=== PATIENT | female | born 1975 | race African-American/Black ===

== ENCOUNTER 2018-07-29 00:16 | Inpatient (IN) | payer MEDICAID ==
[~2018-07-29] VITALS: Ht 160 cm; Wt 55.3 kg
[2018-07-29] VITALS (7 sets, daily range): BP systolic 98–110; BP diastolic 48–56
[~2018-07-29 00:16] MED LIST: CEPHALEXIN500 MG ORAL; NKM
--- NOTE | 2018-07-29 00:44 | Emergency Room Report ---
History of Present Illness General Chief Complaint: Back Pain-No Injury Source: Patient, Medical Record Present Illness HPI This a 42-year-old female who was diagnosed recently with pyelonephritis. CT scan is negative for kidney stones. She was started on Keflex. Urine culture grew out Escherichia coli and sensitive to medicines she is on. She already had follow-up with her doctor and had a CT with IV contrast done. Still show inflammation around the kidney. Patient was doing well until tonight when she woke up with increasing pain. No nausea no vomiting. No fever chills. Denies any other complaint. Pain is 8 out of 10. Localized the right side. Allergies: Coded Allergies: No Known Allergies (Unverified , 07/23/18) Patient History Past Medical History: see triage record, old chart reviewed Past Surgical History: none Pertinent Family History: none Social History: Denies: smoking Last Menstrual Period: jul 21 Now: No Immunizations: other Reviewed Nursing Documentation: PMH: Agreed; PSxH: Agreed Nursing Documentation-PMH Hx Cardiac Problems: No Hx Hypertension: No Hx Pacemaker: No Hx Asthma: No Hx COPD: No Hx Diabetes: No Hx Cancer: No Hx Gastrointestinal Problems: No Hx Dialysis: No History Of Psychiatric Problem: No Hx Neurological Problems: No Hx Cerebrovascular Accident: No Hx Seizures: No Review of Systems Eye: Denies: eye pain, blurred vision ENT: Denies: ear pain, nose congestion, throat swelling Respiratory: Denies: cough, shortness of breath Cardiovascular: Denies: chest pain, palpitations Gastrointestinal: Denies: abdominal pain, diarrhea, nausea, vomiting Genitourinary: Reports: hematuria Musculoskeletal: Reports: back pain; Denies: joint pain Skin: Denies: rash Neurological: Denies: headache, numbness Endocrine: Denies: increased thirst, increased urine Hematologic/Lymphatic: Denies: easy bruising All Other Systems: negative except mentioned in HPI Physical Exam Vital Signs Date Time Temp Pulse Resp B/P (MAP) Pulse Ox O2 Delivery O2 Flow Rate FiO2 07/29/18 00:17 97.9 80 19 98/48 99 Room Air vitals unremarkable Sp02 EP Interpretation: reviewed, normal General Appearance: well appearing, no apparent distress, alert Head: normocephalic, atraumatic Eyes: bilateral eye PERRL, bilateral eye EOMI ENT: hearing grossly normal, normal pharynx Neck: full range of motion, supple, no meningismus Respiratory: chest non-tender, lungs clear, normal breath sounds Cardiovascular #1: regular rate, rhythm, no murmur Gastrointestinal: normal bowel sounds, non tender, no mass, no organomegaly, no bruit, non-distended Genitourinary: CVA tenderness (R) Musculoskeletal: back normal, gait/station normal, normal range of motion Psychiatric: mood/affect normal Skin: warm/dry Medical Decision Making Diagnostic Impression: Primary Impression: Pyelonephritis ER Course She presents with pyelonephritis. She had 2 CT scans done already. 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 No kidney stone. She said the CT scan with IV contrast also showed the same thing. This was done as an outpatient. She no longer have fever and white count is better. She still has evidence of urinary tract infection with moderate amount of bacteria. She's been on 4 days of Keflex. This should be the correct antibiotics since culture grew out Escherichia coli is pansensitive. Because of continual symptoms of pyelonephritis, will admit for IV antibiotics. I contacted Dr. Chacon for admission. Lab Results Impression labs unremarkable Last Vital Signs Date Time Temp Pulse Resp B/P (MAP) Pulse Ox O2 Delivery O2 Flow Rate FiO2 07/29/18 00:28 97.9 19 98/48 99 Room Air 07/29/18 00:17 80 Status: improved Disposition: ADMITTED INPATIENT Condition: Serious Dc Barron MD Jul 29, 2018 00:43
[2018-07-29] MEDS ORDERED: cefTRIAXone 1 GM in NS 55 ML IVPB ONE (00:45)
[2018-07-29] MEDS ORDERED: Morphine Sulfate 4mg/ml Inj (IV/IM USE ONLY) IVP ONE (00:45)
[2018-07-29 01:12] LABS: BASOPHILS % (AUTO) 0.8 % (0.0-2.0); EOSINOPHILS % (AUTO) 0.8 % (0.0-3.0); HEMATOCRIT 26.6 % (37.0-47.0); HEMOGLOBIN 9.7 G/DL (12.0-16.0); LYMPHOCYTES % (AUTO) 17.5 % (20.0-45.0); MEAN CORPUSCULAR VOLUME 90 FL (80-99); MONOCYTES % (AUTO) 4.6 % (1.0-10.0); NEUTROPHILS % (AUTO) 76.3 % (45.0-75.0); PLATELET COUNT 265 K/UL (150-450); RED BLOOD COUNT 2.97 M/UL (4.20-5.40); RED CELL DISTRIBUTION WIDTH 11.9 % (11.6-14.8); WHITE BLOOD COUNT 11.6 K/UL (4.8-10.8)
[2018-07-29 01:16] LABS: BILIRUBIN, URINE NEGATIVE (NEGATIVE); GLUCOSE, URINE (UA) NEGATIVE (NEGATIVE); KETONES,URINE NEGATIVE (NEGATIVE); LEUKOCYTE ESTERASE ,URINE 2+ (NEGATIVE); NITRITE,URINE NEGATIVE (NEGATIVE); PH,URINE 8 (4.5-8.0); PROTEIN,URINE 3+ (NEGATIVE); UROBILINOGEN,URINE 1 MG/DL (0.0-1.0)
[2018-07-29 01:21] LABS: ANION GAP 3 mmol/L (5-15); BLOOD UREA NITROGEN 12 mg/dL (7-18); CALCIUM 8.7 MG/DL (8.5-10.1); CARBON DIOXIDE 30 MMOL/L (21-32); CHLORIDE 105 MMOL/L (98-107); POTASSIUM 3.6 MMOL/L (3.5-5.1); SODIUM 138 MMOL/L (136-145)
[2018-07-29 01:27] LABS: CREATININE 0.7 MG/DL (0.55-1.30)
[2018-07-29 01:28] LABS: COLOR,URINE AMBER
[2018-07-29 01:29] LABS: APPEARANCE,URINE SLIGHTLY CLOUDY
[2018-07-29] MEDS ORDERED: Morphine Sulfate 2mg/ml Inj IVP PRN (03:30)
[2018-07-29] MEDS: D5 1/2NS 1,000 ML IV SCH ×2 (03:37→20:57)
[2018-07-29] MEDS ORDERED: Albuterol/Ipratropium 3ml neb HHN PRN (05:45)
[2018-07-29] MEDS ORDERED: Miralax 17gm pkt ORAL PRN (05:45)
[2018-07-29] MEDS ORDERED: Potassium Chloride 40 MEQ in Sodium Chloride 500ML 550 ML IVPB ONE (05:45)
[2018-07-29 07:31] LABS: BASOPHILS % (AUTO) 1.1 % (0.0-2.0); EOSINOPHILS % (AUTO) 0.6 % (0.0-3.0); HEMATOCRIT 30.9 % (37.0-47.0); HEMOGLOBIN 11.2 G/DL (12.0-16.0); LYMPHOCYTES % (AUTO) 20.5 % (20.0-45.0); MEAN CORPUSCULAR VOLUME 91 FL (80-99); MONOCYTES % (AUTO) 4.7 % (1.0-10.0); NEUTROPHILS % (AUTO) 73.1 % (45.0-75.0); PLATELET COUNT 293 K/UL (150-450); RED BLOOD COUNT 3.41 M/UL (4.20-5.40); RED CELL DISTRIBUTION WIDTH 11.8 % (11.6-14.8); WHITE BLOOD COUNT 10.5 K/UL (4.8-10.8)
[2018-07-29 07:53] LABS: ANION GAP 5 mmol/L (5-15); BLOOD UREA NITROGEN 10 mg/dL (7-18); CALCIUM 8.3 MG/DL (8.5-10.1); CARBON DIOXIDE 27 MMOL/L (21-32); CHLORIDE 108 MMOL/L (98-107); CREATININE 0.6 MG/DL (0.55-1.30); POTASSIUM 4.1 MMOL/L (3.5-5.1); SODIUM 140 MMOL/L (136-145)
[2018-07-29] MEDS ORDERED: Vancomycin 1 GM in D5W 275 ML IVPB SCH (08:00)
[2018-07-29] MEDS: Morphine Sulfate 2mg/ml Inj IVP PRN ×3 (08:29→19:48)
[2018-07-29] MEDS ORDERED: Heparin 5000 units/ml inj SUBQ SCH (09:00)
--- NOTE | 2018-07-29 11:57 | Consultation ---
Consult Note Consult Note # [id number] Ranulfo Alba MD Jul 29, 2018 11:57
[2018-07-29] MEDS: Cefepime HCl 2 GM in D5W 110 ML IV SCH ×2 (12:32→20:56)
[2018-07-29] MEDS ORDERED: Sodium Phosphate 30 MM in NS 275 ML IV ONE (12:45)
[2018-07-29] MEDS ORDERED: Vancomycin 500mg/D5W 110ml IVPB SCH ×2 (16:00)
--- NOTE | 2018-07-29 21:45 | History and Physical Report ---
DATE OF ADMISSION: 07/29/2018 CONSULTANTS: 1. Kevin Mansfield M.D. 2. Ranulfo Alba M.D. CHIEF COMPLAINT: Hematuria for three weeks and pyelonephritis. BRIEF HISTORY: This is a 42-year-old female, who had recurrent hematuria intermittently for three weeks and slight flank pain, came to [facility], diagnosed with pyelonephritis, and admitted to medical floor for further treatment. Currently, slight back pain. No complaint. REVIEW OF SYSTEMS: No chest pain. No shortness of breath. No nausea, vomiting, or diarrhea. PAST MEDICAL HISTORY: Nothing. PAST SURGICAL HISTORY: Ovarian cyst and . MEDICATIONS: Include vancomycin, magnesium, cefepime, heparin, potassium, albuterol, morphine, and temazepam. ALLERGIES: Denies. SOCIAL HISTORY: No smoking. No alcohol. No intravenous drug abuse. FAMILY HISTORY: Noncontributory. PHYSICAL EXAMINATION: GENERAL: Calm in bed, oriented x3, and in no acute distress. VITAL SIGNS: Temperature is 97 degrees, pulse 72, respirations 18, and blood pressure 106/51. CARDIOVASCULAR: No murmurs. LUNGS: Distant and clear. ABDOMEN: Bowel sounds positive. Nontender. Nondistended. EXTREMITIES: Show no cyanosis, clubbing, or edema. NEUROLOGIC: Cranial nerves II through XII are grossly intact. Deep tendon reflexes 2+. Muscle strength 5/5. LABORATORY DATA: Laboratories, at this time, show hemoglobin 11.2, otherwise CBC is normal. BMP shows chloride 108, otherwise normal. Urinalysis, 3+ protein and 2+ leukocyte esterase. ASSESSMENT: 1. Pyelonephritis. 2. Anemia. PLAN: 1. Antibiotic per Infectious Disease. 2. Dietary followup. 3. Discharge plan if cleared by ID. Clive Chacon D.O. DR: JORGE JOB#: [id number] CC:
--- NOTE | 2018-07-29 21:45 | Consultation ---
DATE OF CONSULTATION: 07/29/2018 INFECTIOUS DISEASE CONSULTATION REFERRING PHYSICIAN: Clive Chacon D.O. REASON FOR CONSULTATION: Evaluation of the patient for UTI, hematuria, and antibiotic management. HISTORY OF PRESENT ILLNESS: The patient is a 42-year-old female, who came to the hospital because of onset of flank pain. The patient was recently seen in the emergency room on 07/23/2018 and urine culture was growing E. coli. The patient was discharged on Keflex; however; the patient developed right flank pain because of that, came to the hospital. The patient was found to have mild leukocytosis on admission. Infectious Disease consultation has been requested for further evaluation of the patient and antibiotic management. PAST MEDICAL HISTORY: Unremarkable. ALLERGIES: No known drug allergies. SOCIAL HISTORY: Negative for alcohol, drug abuse, or smoking. FAMILY HISTORY: Noncontributory. MEDICATION: Cefepime. PHYSICAL EXAMINATION: VITAL SIGNS: Temperature 97.8, blood pressure 103/54, pulse 86, and respiratory rate 18. HEENT: No pale conjunctivae. No icterus. CHEST: Clear. HEART: S1 and S2. ABDOMEN: Soft and nontender. EXTREMITIES: No cyanosis at this time. NEUROLOGIC: Awake. LABORATORY DATA: White blood cells on 07/23/2018 was 17 and on 07/29/2018 today is 10.5, hemoglobin 11, and platelets 293,000. UA too numerous to count red blood cells and 5 to 10 white blood cells. BUN 10 and creatinine 0.8. ALT, AST, and alkaline phosphatase are unremarkable. Urine culture is growing E. coli on 07/23/2018 and only resistant to ampicillin. CT of the abdomen showed enlargement/malrotation of right kidney with perinephric stranding, suggestive of pyelonephritis. ASSESSMENT: The patient is a 42-year-old female with, UTI/pyelonephritis (urine culture E. coli on 07/23/2018). PLAN: 1. We will continue the patient on IV cefepime for now. 2. Monitor cultures (blood, urine). 3. Monitor CBC. 4. Monitor BMP. 5. Based on the patient's clinical course and labs, we will do further recommendations. Thank you, Dr. Clive Chacon, for allowing me to participate in the care of this patient. I will follow the patient with you during this hospitalization. Ranulfo Alba M.D. DR: KENZIE JOB#: [id number] CC:
[2018-07-30] VITALS: BP 124/60
[2018-07-30 04:00] VITALS: BP 113/66
[2018-07-30 06:44] LABS: BASOPHILS % (AUTO) 0.9 % (0.0-2.0); EOSINOPHILS % (AUTO) 1.6 % (0.0-3.0); HEMATOCRIT 33.2 % (37.0-47.0); HEMOGLOBIN 11.2 G/DL (12.0-16.0); LYMPHOCYTES % (AUTO) 29.7 % (20.0-45.0); MEAN CORPUSCULAR VOLUME 92 FL (80-99); MONOCYTES % (AUTO) 4.8 % (1.0-10.0); NEUTROPHILS % (AUTO) 62.9 % (45.0-75.0); PLATELET COUNT 303 K/UL (150-450); RED BLOOD COUNT 3.61 M/UL (4.20-5.40); RED CELL DISTRIBUTION WIDTH 12.1 % (11.6-14.8); WHITE BLOOD COUNT 6.5 K/UL (4.8-10.8)
[2018-07-30 07:00] LABS: ALANINE AMINOTRANSFERASE 21 U/L (12-78); ALBUMIN 2.7 G/DL (3.4-5.0); ALBUMIN/GLOBULIN RATIO 0.8 (1.0-2.7); ALKALINE PHOSPHATASE 54 U/L (46-116); ASPARTATE AMINO TRANSFERASE 20 U/L (15-37); BILIRUBIN,TOTAL 0.3 MG/DL (0.2-1.0); CALCIUM 8.6 MG/DL (8.5-10.1); CHLORIDE 108 MMOL/L (98-107); CREATININE 0.6 MG/DL (0.55-1.30); POTASSIUM 4.1 MMOL/L (3.5-5.1); SODIUM 141 MMOL/L (136-145)
[2018-07-30 07:31] LABS: CARBON DIOXIDE 26 MMOL/L (21-32)
[2018-07-30 07:45] LABS: BLOOD UREA NITROGEN 6 mg/dL (7-18)
[2018-07-30 08:00] VITALS: BP 106/71
[2018-07-30] MEDS: Cefepime HCl 2 GM in D5W 110 ML IV SCH (09:05)
[2018-07-30] MEDS ORDERED: CEPHALEXIN250 MG ORAL (10:49)
--- NOTE | 2018-07-30 10:52 | Pulmonology Progress Note ---
Assessment/Plan Problems: (1) Gross hematuria (2) Pyelonephritis Assessment/Plan improving continue abx pain is better Subjective Interval Events: feeling better, less blood in urine, Allergies: Coded Allergies: No Known Allergies (Unverified , 07/23/18) Objective Last 24 Hour Vital Signs Date Time Temp Pulse Resp B/P (MAP) Pulse Ox O2 Delivery O2 Flow Rate FiO2 07/30/18 08:20 Room Air 07/30/18 08:00 98.6 68 18 106/71 (83) 100 07/30/18 04:00 98.2 63 18 113/66 (82) 97 07/30/18 00:00 97.9 63 18 124/60 (81) 100 07/29/18 21:04 72 18 Room Air 21 07/29/18 21:00 Room Air 07/29/18 20:00 98.6 74 18 103/56 (72) 100 07/29/18 16:00 97.7 54 19 103/54 (70) 98 07/29/18 12:00 97.3 70 18 110/53 (72) 99 Intake and Output 07/29/18 07/30/18 19:00 07:00 Intake Total 1000 ml 600 ml Balance 1000 ml 600 ml Intake Oral 1000 ml IV Total 600 ml # Voids 4 4 General Appearance: WD/WN HEENT: normocephalic, atraumatic Respiratory/Chest: chest wall non-tender, lungs clear Breasts: no masses Cardiovascular: normal peripheral pulses Abdomen: normal bowel sounds, soft, non tender Genitourinary: normal external genitalia Extremities: no cyanosis Skin: no rash 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 Lymphatic: no neck adenopathy Microbiology Date/Time Source Procedure Growth Status 07/29/18 00:50 Urine,Clean Catch Urine Culture - Preliminary NO GROWTH Resulted Laboratory Tests 07/30/18 05:25: White Blood Count 6.5, Red Blood Count 3.61L, Hemoglobin 11.2L, Hematocrit 33.2L , Mean Corpuscular Volume 92, Mean Corpuscular Hemoglobin 30.9, Mean Corpuscular Hemoglobin Concent 33.7, Red Cell Distribution Width 12.1, Platelet Count 303, Mean Platelet Volume 7.2, Neutrophils (%) (Auto) 62.9, Lymphocytes (% ) (Auto) 29.7, Monocytes (%) (Auto) 4.8, Eosinophils (%) (Auto) 1.6, Basophils ( %) (Auto) 0.9, Sodium Level 141, Potassium Level 4.1, Chloride Level 108H, Carbon Dioxide Level 26, Blood Urea Nitrogen 6L, Creatinine 0.6, Estimat Glomerular Filtration Rate > 60, Glucose Level 84, Calcium Level 8.6, Total Bilirubin 0.3, Aspartate Amino Transf (AST/SGOT) 20, Alanine Aminotransferase ( ALT/SGPT) 21, Alkaline Phosphatase 54, Total Protein 6.3L, Albumin 2.7L, Globulin 3.6, Albumin/Globulin Ratio 0.8L Current Medications Medications (Trade) Dose Ordered Sig/Paul Route PRN Reason Start Time Stop Time Status Last Admin Dose Admin Acetaminophen (Tylenol) 650 mg Q4H PRN ORAL fever 07/29/18 05:45 08/28/18 05:44 Albuterol/ Ipratropium (Albuterol/ Ipratropium) 3 ml Q4H PRN HHN Shortness of Breath 07/29/18 05:45 08/03/18 05:44 Cefepime HCl 2 gm/ Dextrose 110 ml @ 220 mls/hr EVERY 12 HOURS IV 07/29/18 09:00 08/05/18 08:59 07/30/18 09:05 Dextrose/Sodium Chloride 1,000 ml @ 60 mls/hr [id number] IV 07/29/18 03:30 08/28/18 03:29 07/29/18 20:57 Morphine Sulfate (Morphine Sulfate) 2 mg Q4H PRN IVP Moderate Pain (Pain Scale 4-6) 07/29/18 05:45 08/05/18 05:44 07/29/18 19:48 Ondansetron HCl (Zofran) 4 mg Q6H PRN IVP Nausea & Vomiting 07/29/18 05:45 08/28/18 05:44 Phenazopyridine HCl (Pyridium) 100 mg DAILY PRN ORAL dysuria 07/29/18 05:45 08/28/18 05:44 Polyethylene Glycol (Miralax) 17 gm DAILYPRN PRN ORAL Constipation 07/29/18 05:45 08/28/18 05:44 Temazepam (Restoril) 15 mg HSPRN PRN ORAL Insomnia 07/29/18 05:45 08/05/18 05:44 Kevin Mansfield MD Jul 30, 2018 10:52
[2018-07-30] MEDS ORDERED: LEVOFLOXACIN500 MG ORAL (10:53)
--- NOTE | 2018-07-30 11:09 | Infectious Diseases Prog Note ---
Assessment/Plan Assessment/Plan ASSESSMENT: The patient is a 42-year-old female with, UTI/pyelonephritis (urine culture E. coli on 07/23/2018). PLAN: cont patient on IV cefepime d# 2 , upon DC will change to Levaquin x 1 wk Monitor cultures (blood, urine) Monitor CBC Monitor BMP Subjective Allergies: Coded Allergies: No Known Allergies (Unverified , 07/23/18) Subjective comfortable Objective Vital Signs Last 24 Hour Vital Signs Date Time Temp Pulse Resp B/P (MAP) Pulse Ox O2 Delivery O2 Flow Rate FiO2 07/30/18 08:20 Room Air 07/30/18 08:00 98.6 68 18 106/71 (83) 100 07/30/18 04:00 98.2 63 18 113/66 (82) 97 07/30/18 00:00 97.9 63 18 124/60 (81) 100 07/29/18 21:04 72 18 Room Air 21 07/29/18 21:00 Room Air 07/29/18 20:00 98.6 74 18 103/56 (72) 100 07/29/18 16:00 97.7 54 19 103/54 (70) 98 07/29/18 12:00 97.3 70 18 110/53 (72) 99 Height (Feet): 5 Height (Inches): 3.00 Weight (Pounds): 122 HEENT: anicteric Respiratory/Chest: no respiratory distress Cardiovascular: regularly irregular Abdomen: soft, non tender Microbiology Date/Time Source Procedure Growth Status 07/29/18 00:50 Urine,Clean Catch Urine Culture - Preliminary NO GROWTH Resulted Laboratory Tests Test 07/30/18 05:25 White Blood Count 6.5 K/UL (4.8-10.8) Red Blood Count 3.61 M/UL (4.20-5.40) L Hemoglobin 11.2 G/DL (12.0-16.0) L Hematocrit 33.2 % (37.0-47.0) L Mean Corpuscular Volume 92 FL (80-99) Mean Corpuscular Hemoglobin 30.9 PG (27.0-31.0) Mean Corpuscular Hemoglobin Concent 33.7 G/DL (32.0-36.0) Red Cell Distribution Width 12.1 % (11.6-14.8) Platelet Count 303 K/UL (150-450) Mean Platelet Volume 7.2 FL (6.5-10.1) Neutrophils (%) (Auto) 62.9 % (45.0-75.0) Lymphocytes (%) (Auto) 29.7 % (20.0-45.0) Monocytes (%) (Auto) 4.8 % (1.0-10.0) Eosinophils (%) (Auto) 1.6 % (0.0-3.0) Basophils (%) (Auto) 0.9 % (0.0-2.0) Sodium Level 141 MMOL/L (136-145) Potassium Level 4.1 MMOL/L (3.5-5.1) Chloride Level 108 MMOL/L (98-107) H Carbon Dioxide Level 26 MMOL/L (21-32) Blood Urea Nitrogen 6 mg/dL (7-18) L Creatinine 0.6 MG/DL (0.55-1.30) Estimat Glomerular Filtration Rate > 60 mL/min (>60) Glucose Level 84 MG/DL (74-106) Calcium Level 8.6 MG/DL (8.5-10.1) Total Bilirubin 0.3 MG/DL (0.2-1.0) Aspartate Amino Transf (AST/SGOT) 20 U/L (15-37) Alanine Aminotransferase (ALT/SGPT) 21 U/L (12-78) Alkaline Phosphatase 54 U/L (46-116) Total Protein 6.3 G/DL (6.4-8.2) L Albumin 2.7 G/DL (3.4-5.0) L Globulin 3.6 g/dL Albumin/Globulin Ratio 0.8 (1.0-2.7) L Current Medications Medications (Trade) Dose Ordered Sig/Paul Route PRN Reason Start Time Stop Time Status Last Admin Dose Admin Acetaminophen (Tylenol) 650 mg Q4H PRN ORAL fever 07/29/18 05:45 08/28/18 05:44 Albuterol/ Ipratropium (Albuterol/ Ipratropium) 3 ml Q4H PRN HHN Shortness of Breath 07/29/18 05:45 08/03/18 05:44 Cefepime HCl 2 gm/ Dextrose 110 ml @ 220 mls/hr EVERY 12 HOURS IV 07/29/18 09:00 08/05/18 08:59 07/30/18 09:05 Dextrose/Sodium Chloride 1,000 ml @ 60 mls/hr [id number] IV 07/29/18 03:30 08/28/18 03:29 07/29/18 20:57 Morphine Sulfate (Morphine Sulfate) 2 mg Q4H PRN IVP Moderate Pain (Pain Scale 4-6) 07/29/18 05:45 08/05/18 05:44 07/29/18 19:48 Ondansetron HCl (Zofran) 4 mg Q6H PRN IVP Nausea & Vomiting 07/29/18 05:45 08/28/18 05:44 Phenazopyridine HCl (Pyridium) 100 mg DAILY PRN ORAL dysuria 07/29/18 05:45 08/28/18 05:44 Polyethylene Glycol (Miralax) 17 gm DAILYPRN PRN ORAL Constipation 07/29/18 05:45 08/28/18 05:44 Temazepam (Restoril) 15 mg HSPRN PRN ORAL Insomnia 07/29/18 05:45 08/05/18 05:44 Ranulfo Alba MD Jul 30, 2018 11:09
[2018-07-30 12:00] VITALS: BP 116/72
[2018-07-30] MEDS: D5 1/2NS 1,000 ML IV SCH (12:50)
--- NOTE | 2018-07-30 12:51 | General Progress Note ---
Assessment/Plan Problem List: (1) Anemia ICD Codes: D64.9 - Anemia, unspecified SNOMED: 215974504 (2) Pyelonephritis ICD Codes: N12 - Tubulo-interstitial nephritis, not specified as acute or chronic SNOMED: 43816384 (3) Gross hematuria ICD Codes: R31.0 - Gross hematuria SNOMED: 332967190 Status: stable, progressing Assessment/Plan abx, dc if clear Subjective Allergies: Coded Allergies: No Known Allergies (Unverified , 07/23/18) All Systems: reviewed and negative except above Subjective feeling better Objective Last 24 Hour Vital Signs Date Time Temp Pulse Resp B/P (MAP) Pulse Ox O2 Delivery O2 Flow Rate FiO2 07/30/18 11:43 Room Air 07/30/18 08:20 Room Air 07/30/18 08:00 98.6 68 18 106/71 (83) 100 07/30/18 04:00 98.2 63 18 113/66 (82) 97 07/30/18 00:00 97.9 63 18 124/60 (81) 100 07/29/18 21:04 72 18 Room Air 21 07/29/18 21:00 Room Air 07/29/18 20:00 98.6 74 18 103/56 (72) 100 07/29/18 16:00 97.7 54 19 103/54 (70) 98 Intake and Output 07/29/18 07/30/18 19:00 07:00 Intake Total 1000 ml 600 ml Balance 1000 ml 600 ml Intake Oral 1000 ml IV Total 600 ml # Voids 4 4 Laboratory Tests 07/30/18 05:25: White Blood Count 6.5, Red Blood Count 3.61L, Hemoglobin 11.2L, Hematocrit 33.2L , Mean Corpuscular Volume 92, Mean Corpuscular Hemoglobin 30.9, Mean Corpuscular Hemoglobin Concent 33.7, Red Cell Distribution Width 12.1, Platelet Count 303, Mean Platelet Volume 7.2, Neutrophils (%) (Auto) 62.9, Lymphocytes (% ) (Auto) 29.7, Monocytes (%) (Auto) 4.8, Eosinophils (%) (Auto) 1.6, Basophils ( %) (Auto) 0.9, Sodium Level 141, Potassium Level 4.1, Chloride Level 108H, Carbon Dioxide Level 26, Blood Urea Nitrogen 6L, Creatinine 0.6, Estimat Glomerular Filtration Rate > 60, Glucose Level 84, Calcium Level 8.6, Total Bilirubin 0.3, Aspartate Amino Transf (AST/SGOT) 20, Alanine Aminotransferase ( ALT/SGPT) 21, Alkaline Phosphatase 54, Total Protein 6.3L, Albumin 2.7L, Globulin 3.6, Albumin/Globulin Ratio 0.8L Height (Feet): 5 Height (Inches): 3.00 Weight (Pounds): 122 General Appearance: alert EENT: normal ENT inspection Neck: normal alignment Cardiovascular: normal peripheral pulses, normal rate, regular rhythm Respiratory/Chest: chest wall non-tender, lungs clear, normal breath sounds Abdomen: normal bowel sounds, non tender, soft Extremities: normal inspection Edema: no edema noted Arm (L), no edema noted Arm (R), no edema noted Leg (L), no edema noted Leg (R), no edema noted Pedal (L), no edema noted Pedal (R), no edema noted Generalized Neurologic: responsive, motor weakness Skin: normal pigmentation, warm/dry Clive Chacon DO Jul 30, 2018 12:51
--- NOTE | 2018-08-01 14:35 | Discharge Summary ---
Discharge Summary Discharge Summary _ DATE OF ADMISSION: 07/29/2018 DATE OF DISCHARGE: And 618 REASON FOR ADMISSION: 42 years old female without significant past medical history , was recently diagnosed with pyelonephritis. CT of the abdomen was negative for kidney stones. Patient was started on Keflex and was discharged home with outpatient follow up with primary care provider. Urine culture grew Escherichia coli. Patient followed-up with her doctor and had CT with IV contrast done. It still revealed inflammation around her kidney. Patient was doing well until the day of admission. She came to emergency department due to increased pain. She denied fever and chills . She denied nausea and vomiting . Pain was reported as increased 8 out of 10, localized to the right side . Upon evaluation, leukocytosis WBC 11.6. . Hemoglobin 9.7 hematocrit 26.6. Urinalysis revealed moderate bacteria ,pyuria and hematuria. Patient admitted with diagnoses of urinary tract infection/pyelonephritis, hematuria. 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 Mansfield ID specialist Dr. Alba [facility] COURSE: Patient admitted to Med Surg floor. Patient started on IV fluids and IV antibiotics as per ID specialist recommendations. ID specialist recommended upon n discharge to transition to oral antibiotics for additional 1 week to complete the course. Pain management was addressed , and pain was controlled. Supportive care provided. Pyridium was provided for comfort. Hemoglobin and hematocrit were closely monitored . Prior to discharge hemoglobin 11.2 hematocrit 33.2. Supportive care provided. DVT prophylaxis provided. Antiemetic were on board s needed. Patient was able to tolerate diet. Renal parameters and electrolytes were closely monitor, and ed electrolytes corrected as needed. Bowel regimen instituted. Patient clinically stabilized and was ready for discharge home. Leukocytosis resolved, tolerated diet, pain resolved. hemoglobin and hematocrit with trend up. Due to rapid and unexpected improvement in patient 's condition , patient was discharged in one day. FINAL DIAGNOSES: UTI/pyelonephritis with Escherichia coli Hematuria DISCHARGE MEDICATIONS: See Medication Reconciliation list. Patient to complete one week of oral antibiotics DISCHARGE INSTRUCTIONS: Patient was discharged home Follow up with primary care provider in one week. I have been assigned to dictate discharge summary for this account. I was not involved in the patient's management. Kyra Diaz NP Aug 01, 2018 14:35
== END 2018-07-30 13:25 | disposition home or self-care (01) | DRG 463 ==
LOC: EMR 00:56 → 4E 01:53 → EDBEDREQ 02:18 → 4E 20:21
DX: N12 Tubulo-interstitial nephritis, not specified as acute or chronic (principal); B96.20 Unspecified Escherichia coli [E. coli] as the cause of diseases classified elsewhere; D64.9 Anemia, unspecified
CPT/HCPCS: 36415; 80048; 80053; 81003; 81025; 85025; 87040; 87086; 94664; 96361; 96365; 96375; 99285; J2405